=== PATIENT | male | born 1955 | race African-American/Black ===

== ENCOUNTER 2017-08-18 01:47 | Inpatient (IN) | payer OTHER, MEDICAID ==
[~2017-08-18] VITALS: Ht 177.8 cm; Wt 69.4 kg
[2017-08-18] VITALS (59 sets, daily range): BP systolic 114–161; BP diastolic 76–118
[2017-08-18] MEDS ORDERED: FUROSEMIDE 40MG/4ML VIAL IV STA ×2 (01:57→08:04)
[2017-08-18] MEDS ORDERED: PROPOFOL 10MG/ML 100ML 100 ML IV ONE (02:00)
[2017-08-18] MEDS ORDERED: ROCURONIUM BROMIDE 10MG/ML VIAL 5ML IV ONE (02:00)
[2017-08-18] MEDS ORDERED: NITROGLYCERIN 50MG PREMIX 250 ML IV ONE (02:00)
[2017-08-18] MEDS ORDERED: ETOMIDATE 2MG/ML 10ML VIAL IV ONE ×2 (02:00→11:44)
[2017-08-18 02:48] LABS: BASOPHILS % 0.7 % (0.0-2.0); EOSINOPHILS % 1.4 % (0.0-5.0); HEMOGLOBIN. 13.4 g/dL (14.0-18.0); LYMPHOCYTES % 42.2 % (20.0-50.0); MEAN CORPUSCULAR HEMOGLOBIN 29.1 pg (28.0-32.0); MEAN CORPUSCULAR VOLUME 89.4 fL (80.0-94.0); MONOCYTES % 7.1 % (2.0-8.0); NEUTROPHILS % 48.6 % (40.0-76.0); PLATELET 248 x1000/uL (130-400); RED BLOOD CELL COUNT 4.59 mill/uL (4.7-6.1); RED CELL DISTRIBUTION WIDTH 13.9 % (11.6-14.6)
[2017-08-18 03:05] LABS: CARBON DIOXIDE 22 mEq/L (21-32); CHLORIDE 108 mEq/L (98-107); D-DIMER 4.73 mg/L FEU (<0.50); INR 1.1; TROPONIN I 0.12 ng/mL (0.00-0.04)
[2017-08-18 03:26] LABS: BG BASE EXCESS -9.2 mmol/L (-2.0-2.0); BG CARBOXYHEMOGLOBIN 2.2 % (0.5-1.5); BG DEOXYHEMOGLOBIN 7.2 % (0.0-5.0); BG FRACTION INSPIRED OXYGEN 50; BG HCO3 ACT 21.4 mmol/L (22.0-26.0); BG METHEMOGLOBIN 0.3 % (0.0-1.5); BG OXYGEN SATURATION 92.6 % (92.0-98.5); BG OXYHEMOGLOBIN 90.3 % (94.0-97.0); BG PH 7.116 (7.350-7.450); BG SAMPLE SITE RIGHT BRACHIAL; BG TIDAL VOLUME(mL) 500 mL; BG TOTAL HEMOGLOBIN 14.9 g/dL (12.0-18.0); BG VENT MODE VAPOTHERM; BG VENT RATE 14 set
[2017-08-18] MEDS ORDERED: IPRATROPIUM/ALBUTEROL 0.5-3(2.5)MG/3ML NEB INH PRN (07:15)
[2017-08-18] MEDS ORDERED: NA PHOS,M-B/NA PHOS,DI-BA ENEMA 118ML PR PRN (07:15)
[2017-08-18] MEDS ORDERED: DIPHENHYDRAMINE 50MG/ML VIAL IV PRN (07:15)
[2017-08-18] MEDS ORDERED: ACETAMINOPHEN 650MG SUPP PR PRN (07:15)
[2017-08-18] MEDS ORDERED: ONDANSETRON HCL 4MG/2ML VIAL IV PRN (07:15)
[2017-08-18] MEDS ORDERED: MAGNESIUM/ALUMINUM HYDROXIDE/SIMETHICONE 30ML UDC PO PRN (07:15)
[2017-08-18] MEDS ORDERED: GUAIFENESIN 200MG/10ML SUGAR FREE UDC PO PRN (07:15)
[2017-08-18] MEDS ORDERED: ACETAMINOPHEN 650MG/20.3ML UDC GT PRN (07:15)
[2017-08-18] MEDS ORDERED: ACETAMINOPHEN 325MG TABLET PO PRN (07:15)
[2017-08-18] MEDS ORDERED: ENOXAPARIN 40MG/0.4ML SYR SUBCUT SCH (07:15)
[2017-08-18] MEDS ORDERED: CLONIDINE 0.1MG TABLET PO PRN (07:15)
[2017-08-18] MEDS ORDERED: LORAZEPAM 2MG/ML CPJ IV PRN (07:15)
[2017-08-18 07:49] LABS: BASOPHILS % 0.7 % (0.0-2.0); EOSINOPHILS % 0.6 % (0.0-5.0); HEMATOCRIT. 38.7 % (42.0-52.0); HEMOGLOBIN. 12.7 g/dL (14.0-18.0); LYMPHOCYTES % 10.3 % (20.0-50.0); MEAN CORPUSCULAR HEMOGLOBIN 28.7 pg (28.0-32.0); MEAN CORPUSCULAR VOLUME 87.8 fL (80.0-94.0); MEAN PLATELET VOLUME 8.6 fl (7.4-10.4); MONOCYTES % 12.6 % (2.0-8.0); NEUTROPHILS % 75.8 % (40.0-76.0); PLATELET 245 x1000/uL (130-400); RED CELL DISTRIBUTION WIDTH 13.6 % (11.6-14.6)
[2017-08-18 08:03] LABS: CARBON DIOXIDE 23 mEq/L (21-32); CHLORIDE 109 mEq/L (98-107)
[2017-08-18 08:33] LABS: BG BASE EXCESS -5.4 mmol/L (-2.0-2.0); BG CARBOXYHEMOGLOBIN 0.9 % (0.5-1.5); BG FRACTION INSPIRED OXYGEN 70; BG HCO3 ACT 20.4 mmol/L (22.0-26.0); BG METHEMOGLOBIN 0.3 % (0.0-1.5); BG OXYHEMOGLOBIN 97.8 % (94.0-97.0); BG PH 7.315 (7.350-7.450); BG PO2 220.2 mmHg (75.0-100.0); BG SAMPLE SITE RIGHT BRACHIAL; BG TIDAL VOLUME(mL) 500 mL; BG TOTAL HEMOGLOBIN 13.5 g/dL (12.0-18.0); BG VENT MODE VENT - A/C; BG VENT RATE 14 set
[2017-08-18] MEDS: PROPOFOL 10MG/ML 100ML 100 ML IV PRN ×2 (10:12→20:10)
[2017-08-18] MEDS ORDERED: SODIUM POLYSTYRENE SULFONATE 15 G/60 ML BOT PO NR ×2 (10:15→21:15)
[2017-08-18] MEDS: FUROSEMIDE 40MG/4ML VIAL IVP SCH ×2 (10:52→17:56)
[2017-08-18] MEDS: ENOXAPARIN 30MG/0.3ML SYR SUBCUT SCH (10:53)
[2017-08-18] MEDS: METHYLPREDNISOLONE SOD SUCC 40 MG/ML VIAL IV SCH ×2 (10:53→17:55)
[2017-08-18] MEDS: SODIUM CHLORIDE 0.45% 1,000 ML IV SCH (10:53)
[2017-08-18 11:00] LABS: PHOSPHORUS 6.3 mg/dL (2.5-4.9); T4 FREE 1.49 ng/dL (0.76-1.46)
[2017-08-18] MEDS ORDERED: STERILE WATER FOR INJECTION 10ML VIAL ONE (11:44)
[2017-08-18 12:30] LABS: CLARITY URINE CLEAR (CLEAR); COLOR URINE YELLOW (YELLOW); GLUCOSE URINE NEGATIVE (NEGATIVE); KETONES URINE NEGATIVE (NEGATIVE); LEUKOCYTE ESTERASE URINE NEGATIVE (NEGATIVE); NITRITE URINE NEGATIVE (NEGATIVE); OCCULT BLOOD URINE 3+ (NEGATIVE); PROTEIN URINE 2+ (NEGATIVE); SPECIFIC GRAVITY URINE 1.007 (1.005-1.030); UROBILINOGEN URINE 0.2 E.U./dL (0.2-1.0)
[2017-08-18 12:39] LABS: *AMPHETAMINES SCREEN URINE NEGATIVE (NEGATIVE); *BARBITURATES SCREEN URINE NEGATIVE (NEGATIVE); *BENZODIAZEPINES SCREEN URINE NEGATIVE (NEGATIVE); *COCAINE SCREEN URINE NEGATIVE (NEGATIVE); CANNABINOID URINE SCREEN PRESUMTIVE POSITIVE (NEGATIVE); METHADONE URINE SCREEN NEGATIVE (NEGATIVE); OPIATES URINE SCREEN NEGATIVE (NEGATIVE); PHENCYCLIDINE URINE SCREEN NEGATIVE (NEGATIVE)
[2017-08-18] MEDS: BUDESONIDE 0.5MG/2ML NEB HHN SCH ×2 (12:43→20:19)
[2017-08-18] MEDS: IPRATROPIUM/ALBUTEROL 0.5-3(2.5)MG/3ML NEB INH SCH ×2 (12:43→20:20)
[2017-08-18] MEDS: SODIUM CHLORIDE 0.9% INJ 3ML FLUSH IVF SCH ×2 (14:10→21:35)
[2017-08-18 16:43] LABS: CREATINE KINASE MB FRACTION 5.6 ng/mL (0.5-3.6)
[2017-08-18 16:51] LABS: TROPONIN I 0.47 ng/mL (0.00-0.04)
[2017-08-18] MEDS: NITROGLYCERIN 50MG PREMIX 250 ML IV PRN (19:14)
[2017-08-18] MEDS ORDERED: METOPROLOL TARTRATE 25MG TABLET PO SCH (21:00)
[2017-08-19] VITALS (96 sets, daily range): BP systolic 118–169; BP diastolic 54–118
[2017-08-19] MEDS: SODIUM CHLORIDE 0.45% 1,000 ML IV SCH
[2017-08-19 01:16] LABS: CREATINE KINASE MB FRACTION 5.4 ng/mL (0.5-3.6); TROPONIN I 0.39 ng/mL (0.00-0.04)
[2017-08-19] MEDS: FUROSEMIDE 40MG/4ML VIAL IVP SCH ×3 (01:38→19:06)
[2017-08-19] MEDS: METHYLPREDNISOLONE SOD SUCC 40 MG/ML VIAL IV SCH ×2 (01:38→09:21)
[2017-08-19] MEDS: IPRATROPIUM/ALBUTEROL 0.5-3(2.5)MG/3ML NEB INH SCH ×3 (01:41→14:07)
[2017-08-19] MEDS: PROPOFOL 10MG/ML 100ML 100 ML IV PRN ×3 (04:26→20:34)
[2017-08-19] MEDS: SODIUM CHLORIDE 0.9% INJ 3ML FLUSH IVF SCH ×3 (05:05→21:38)
[2017-08-19 05:59] LABS: BASOPHILS % 0.2 % (0.0-2.0); HEMATOCRIT. 38.7 % (42.0-52.0); HEMOGLOBIN. 12.9 g/dL (14.0-18.0); LYMPHOCYTES % 11.5 % (20.0-50.0); MEAN CORPUSCULAR HEMOGLOBIN 29.7 pg (28.0-32.0); MEAN CORPUSCULAR VOLUME 89.2 fL (80.0-94.0); MEAN PLATELET VOLUME 9.4 fl (7.4-10.4); MONOCYTES % 4.3 % (2.0-8.0); PLATELET 239 x1000/uL (130-400); RED BLOOD CELL COUNT 4.34 mill/uL (4.7-6.1); RED CELL DISTRIBUTION WIDTH 13.7 % (11.6-14.6)
[2017-08-19 06:19] LABS: CARBON DIOXIDE 23 mEq/L (21-32); CHLORIDE 102 mEq/L (98-107); CREATINE KINASE 219 IU/L (39-308); CREATINE KINASE MB FRACTION 4.9 ng/mL (0.5-3.6); TROPONIN I 0.38 ng/mL (0.00-0.04)
[2017-08-19 06:22] LABS: HDL CHOLESTEROL 48 mg/dL (40-59); LDL CHOLESTEROL 130 mg/dL (5-100)
[2017-08-19] MEDS: BUDESONIDE 0.5MG/2ML NEB HHN SCH (08:51)
[2017-08-19] MEDS: METOPROLOL TARTRATE 50MG TABLET PO SCH ×2 (09:09→21:37)
[2017-08-19] MEDS: ASPIRIN 81MG TABLET PO SCH (09:09)
[2017-08-19] MEDS: ENOXAPARIN 30MG/0.3ML SYR SUBCUT SCH (09:09)
[2017-08-19 10:38] LABS: BG BASE EXCESS -2.4 mmol/L (-2.0-2.0); BG DEOXYHEMOGLOBIN 1.2 % (0.0-5.0); BG FRACTION INSPIRED OXYGEN 55; BG HCO3 ACT 22.1 mmol/L (22.0-26.0); BG METHEMOGLOBIN 0.4 % (0.0-1.5); BG OXYGEN SATURATION 98.8 % (92.0-98.5); BG OXYHEMOGLOBIN 98.4 % (94.0-97.0); BG PCO2 37.6 mmHg (35.0-45.0); BG PH 7.388 (7.350-7.450); BG PO2 146.7 mmHg (75.0-100.0); BG SAMPLE SITE RIGHT BRACHIAL; BG TIDAL VOLUME(mL) 500 mL; BG TOTAL HEMOGLOBIN 13.1 g/dL (12.0-18.0); BG VENT MODE VENT - A/C; BG VENT RATE 14 set
[2017-08-19] MEDS ORDERED: LORAZEPAM 2MG/ML CPJ IV PRN (11:15)
[2017-08-19] MEDS: HYDRALAZINE HCL 50MG TABLET PO SCH ×2 (13:27→21:37)
[2017-08-19] MEDS: PANTOPRAZOLE SODIUM 40 MG/VIAL IV SCH (14:31)
[2017-08-19] MEDS: NITROGLYCERIN 50MG PREMIX 250 ML IV PRN (14:32)
[2017-08-20] VITALS (80 sets, daily range): BP systolic 106–148; BP diastolic 60–118
[2017-08-20] MEDS: FUROSEMIDE 40MG/4ML VIAL IVP SCH ×2 (00:41→09:00)
[2017-08-20] MEDS: SODIUM CHLORIDE 0.9% INJ 3ML FLUSH IVF SCH ×2 (05:00→15:25)
[2017-08-20] MEDS: HYDRALAZINE HCL 50MG TABLET PO SCH ×2 (05:00→15:24)
[2017-08-20] MEDS: PROPOFOL 10MG/ML 100ML 100 ML IV PRN (05:02)
[2017-08-20 05:40] LABS: BASOPHILS % 0.7 % (0.0-2.0); EOSINOPHILS % 0.1 % (0.0-5.0); HEMATOCRIT. 37.8 % (42.0-52.0); HEMOGLOBIN. 12.7 g/dL (14.0-18.0); MEAN CORPUSCULAR HEMOGLOBIN 29.3 pg (28.0-32.0); MEAN CORPUSCULAR VOLUME 87.4 fL (80.0-94.0); MONOCYTES % 9.1 % (2.0-8.0); NEUTROPHILS % 73.1 % (40.0-76.0); PLATELET 242 x1000/uL (130-400); RED BLOOD CELL COUNT 4.33 mill/uL (4.7-6.1); RED CELL DISTRIBUTION WIDTH 13.6 % (11.6-14.6)
[2017-08-20 06:20] LABS: CARBON DIOXIDE 23 mEq/L (21-32); CHLORIDE 99 mEq/L (98-107)
[2017-08-20 07:50] LABS: BG BASE EXCESS -2.7 mmol/L (-2.0-2.0); BG CARBOXYHEMOGLOBIN 0.2 % (0.5-1.5); BG DEOXYHEMOGLOBIN 1.1 % (0.0-5.0); BG FRACTION INSPIRED OXYGEN 45; BG METHEMOGLOBIN 0.4 % (0.0-1.5); BG OXYGEN SATURATION 98.9 % (92.0-98.5); BG OXYHEMOGLOBIN 98.3 % (94.0-97.0); BG PCO2 38.3 mmHg (35.0-45.0); BG PH 7.378 (7.350-7.450); BG PO2 159.8 mmHg (75.0-100.0); BG SAMPLE SITE RIGHT RADIAL; BG TIDAL VOLUME(mL) 500 mL; BG TOTAL HEMOGLOBIN 13.5 g/dL (12.0-18.0); BG VENT MODE VENT - A/C; BG VENT RATE 14 set
[2017-08-20] MEDS: ASPIRIN 81MG TABLET PO SCH (08:08)
[2017-08-20] MEDS: METOPROLOL TARTRATE 50MG TABLET PO SCH ×2 (08:08→21:00)
[2017-08-20] MEDS: PANTOPRAZOLE SODIUM 40 MG/VIAL IV SCH (08:08)
[2017-08-20] MEDS: DOCUSATE SODIUM 100MG CAPSULE PO PRN ×2 (08:09→17:55)
[2017-08-20] MEDS: ENOXAPARIN 30MG/0.3ML SYR SUBCUT SCH (08:09)
[2017-08-20 08:45] LABS: PHOSPHORUS 8.6 mg/dL (2.5-4.9)
[2017-08-20] MEDS ORDERED: POTASSIUM CHLORIDE 20MEQ/PACKET PO NR (10:00)
[2017-08-20] MEDS: FENTANYL CITRATE/PF 500 MCG in SODIUM CHLORIDE 0.9% 40 ML IV PRN ×2 (10:12→17:15)
[2017-08-20] MEDS ORDERED: LORAZEPAM 2MG/ML CPJ IV PRN (11:15)
[2017-08-20] MEDS ORDERED: CALCIUM ACETATE 667MG CAPSULE PO SCH (17:00)
[2017-08-20] MEDS: BUDESONIDE 0.5MG/2ML NEB HHN SCH (19:55)
[2017-08-20] MEDS: IPRATROPIUM/ALBUTEROL 0.5-3(2.5)MG/3ML NEB INH SCH (19:56)
[2017-08-21] MEDS ORDERED: FUROSEMIDE 40MG/4ML VIAL IVP SCH ×2 (09:00)
== END 2017-08-20 21:00 | disposition short-term general hospital (02) | DRG 208 ==
LOC: ER 01:47 → MICUSO 02:45 → EDBD 02:45 → EDBEDREQ 02:49 → EDBEDREQTM 02:49 → ENRESERV 09:00
PROVIDERS: ADMIT Family Medicine; ATTEND Family Medicine
PROC: 5A1945Z Respiratory Ventilation, 24-96 Consecutive Hours (ICD-10-PCS; principal; 2017-08-18)
PROC: 0BH17EZ Insertion of Endotracheal Airway into Trachea, Via Natural or Artificial Opening (ICD-10-PCS; 2017-08-18)
DX: J96.02 Acute respiratory failure with hypercapnia (principal); N17.0 Acute kidney failure with tubular necrosis; I47.2 Ventricular tachycardia; I50.41 Acute combined systolic (congestive) and diastolic (congestive) heart failure; E11.22 Type 2 diabetes mellitus with diabetic chronic kidney disease; E83.39 Other disorders of phosphorus metabolism; I42.0 Dilated cardiomyopathy; E87.2 Acidosis; N18.4 Chronic kidney disease, stage 4 (severe); I13.0 Hypertensive heart and chronic kidney disease with heart failure and stage 1 through stage 4 chronic kidney disease, or unspecified chronic kidney disease; J44.1 Chronic obstructive pulmonary disease with (acute) exacerbation; F17.210 Nicotine dependence, cigarettes, uncomplicated; E87.5 Hyperkalemia; R79.1 Abnormal coagulation profile; N28.1 Cyst of kidney, acquired; E78.5 Hyperlipidemia, unspecified; G40.909 Epilepsy, unspecified, not intractable, without status epilepticus; F12.10 Cannabis abuse, uncomplicated; R74.0 Nonspecific elevation of levels of transaminase and lactic acid dehydrogenase [LDH]; R31.9 Hematuria, unspecified; E78.1 Pure hyperglyceridemia; Z83.3 Family history of diabetes mellitus; Z82.49 Family history of ischemic heart disease and other diseases of the circulatory system
CPT/HCPCS: 31500; 36415; 36600; 51702; 71010; 76604; 76770; 80053; 80061; 80076; 80305; 81001; 82248; 82375; 82550; 82553; 82805; 83036; 83605; 83735; 83880; 84100; 84132; 84439; 84443; 84478; 84484; 85025; 85379; 85610; 87040; 93005; 93306; 93970; 94002; 94003; 94640; 94664; 96365; 96375; 99291; A4216; C9113; J1200; J1650; J1940; J2060; J2405; J2704; J2920; J3010; J3490; J7620; J7626; A4315